=== PATIENT | female | born 1985 ===

== ENCOUNTER 2018-01-09 03:15 | Emergency (ER) | payer MEDICAID ==
[2018-01-09 03:26] VITALS: O2SAT 99
--- NOTE | 2018-01-09 05:43 | C.PDOC ---
History Of Present Illness 32 year old female presents to the ER stating she feels anxious and shaky after having some marijuana laced brownies. Patient reports this is her first time ingesting marijuana. Denies chest pain, vomiting, SOB, weakness, numbness. Time Seen by Provider: 01/09/18 03:32 Chief Complaint (Nursing): Substance Abuse History Per: Patient History/Exam Limitations: no limitations Onset/Duration Of Symptoms: Hrs Current Symptoms Are (Timing): Still Present Suicide/Self Injury Attempted (Context): None Modifying Factor(s): Marijuana Associated Symptoms: denies: Depression, Suicidal Thoughts Involuntary Hold By: None Recent travel outside of the [place]: No Past Medical History Reviewed: Historical Data, Nursing Documentation, Vital Signs Vital Signs: Last Vital Signs Temp 97.5 F L 01/09/18 05:47 Pulse 80 01/09/18 05:47 Resp 14 01/09/18 05:47 BP 140/80 01/09/18 05:47 Pulse Ox 99 01/09/18 05:48 - Medical History PMH: HTN Family History: States: Unknown Family Hx - Social History Hx Alcohol Use: No Hx Substance Use: Yes - Immunization History Hx Tetanus Toxoid Vaccination: Yes Hx Influenza Vaccination: No Review Of Systems Cardiovascular: Negative for: Chest Pain Respiratory: Negative for: Shortness of Breath Gastrointestinal: Negative for: Vomiting Psych: Positive for: Anxiety Physical Exam - Physical Exam Appears: Non-toxic, Other (Anxious) Skin: Normal Color, Warm, Dry Head: Atraumatic, Normacephalic Eye(s): bilateral: Normal Inspection, PERRL Oral Mucosa: Moist Chest: Symmetrical, No Tenderness Cardiovascular: Rhythm Regular Respiratory: Normal Breath Sounds, No Rhonchi, No Wheezing Gastrointestinal/Abdominal: Soft, No Tenderness Extremity: Normal ROM Extremity: Bilateral: Atraumatic Neurological/Psych: Oriented x3, Normal Speech, Normal Cognition, Normal Motor, Normal Sensation Gait: Steady ED Course And Treatment O2 Sat by Pulse Oximetry: 99 (room air) Pulse Ox Interpretation: Normal Progress Note: Patient offered xanax PO but refused, patient states she feels better now and is requesting to leave, will discharge home with instructions to follow up with PMD. Disposition Counseled Patient/Family Regarding: Diagnosis, Need For Followup - Disposition Referrals: Eric Cardenas MD [Medical Doctor] - Disposition: HOME/ ROUTINE Disposition Time: 05:43 Condition: STABLE Additional Instructions: Please follow up with your Doctor Advised against the use of drugs Return to ER if worse Instructions: Marijuana Use and Addiction (DC) Forms: [employer] ([place]) - Clinical Impression Clinical Impression: Cannabis use disorder, mild, abuse - PA / CAN INTAKE WORKER / Resident Statement MD/DO has reviewed & agrees with the documentation as recorded. - Scribe Statement The provider has reviewed the documentation as recorded by the Scribkrzysztof Vasquez All medical record entries made by the Lolita were at my direction and personally dictated by me. I have reviewed the chart and agree that the record accurately reflects my personal performance of the history, physical exam, medical decision making, and the department course for this patient. I have also personally directed, reviewed, and agree with the discharge instructions and disposition.
--- NOTE | 2018-01-09 05:45 | C.PDOC ---
Time Seen by Provider: 01/09/18 03:32 Chief Complaint (Nursing): Substance Abuse Past Medical History Vital Signs: Last Vital Signs Temp 98 F 01/09/18 03:24 Pulse 111 H 01/09/18 03:24 Resp 17 01/09/18 03:24 BP 161/85 H 01/09/18 03:24 Pulse Ox 99 01/09/18 03:24 - Medical History PMH: HTN - Social History Hx Alcohol Use: No Hx Substance Use: Yes - Immunization History Hx Tetanus Toxoid Vaccination: Yes Hx Influenza Vaccination: No ED Course And Treatment O2 Sat by Pulse Oximetry: 99 Disposition Counseled Patient/Family Regarding: Diagnosis, Need For Followup - Disposition Referrals: Eric Cardenas MD [Medical Doctor] - Disposition: HOME/ ROUTINE Disposition Time: 05:43 Condition: STABLE Additional Instructions: Please follow up with your Doctor Advised against the use of drugs Return to ER if worse Instructions: Marijuana Use and Addiction (DC) - Clinical Impression Clinical Impression: Cannabis use disorder, mild, abuse
[2018-01-09 05:48] VITALS: BP 140/80; PULSE 80; RESP 14; TEMP 97.5
== END 2018-01-09 05:48 | disposition home or self-care (01) ==
LOC: C.ER 03:15
DX: F12.10 Cannabis abuse, uncomplicated (principal); I10 Essential (primary) hypertension